=== PATIENT | male | born 1980 | race Caucasian/White ===

== ENCOUNTER 2024-02-26 14:53 | Outpatient (CLI) | payer OTHER ==
--- NOTE | 2024-02-26 15:57 | Sleep Patient Instructions ---
Sleep Center Visit Summary - Patient Visit Information Reason for Visit: Initial consultation - Patient Instructions Additional Instructions: You will continue with CPAP therapy with pressure set at 11-12 cmH2O. A supply prescription will be updated with your DME supplier. I have added an order to update your PAP machine. Please call the office to schedule a compliance follow up once you get your new device. We encourage you to continue to try to lose weight. Please follow up with the sleep care office one month after obtaining new device. - Clinic Information Contact: [facility] [address] [place] [address] [email or web address] T: [phone]
[2024-02-26 16:00] VITALS: BP 136/89; O2SAT 98
--- NOTE | 2024-02-26 16:00 | SLEEP CARE CONSULTATION ---
Information from patient questionnaire entered by Carina Polanco. I have reviewed and concur with the information entered by Carina Polanco. This document represents the service I personally performed and the decisions made by me, Caro De Jesus ARNP. History of Present Illness Service Date and Time: 02/26/2024 1453 Reason for Visit: New patient, Previously diagnosed sleep apnea, sleep apnea on CPAP therapy Chief Complaint: reports: Other (Continuing care, switching clinics, on CPAP) Date of Onset: 2016 Usual bedtime: 8 PM Time it takes to fall asleep: 30 mins Snores at night: Yes Observed to quit breathing while asleep: Yes Sleeps alone due to snoring: No Number of times waking at night: Before CPAP, 2 - 3 times Reasons for waking at night: reports: Choking, Snoring, Gasping for air, Pain, Bathroom, Other (Noise) Toss, Turn, or Twitch while sleeping: Yes Recalls having dreams: Yes Usually gets out of bed at: 3 AM Feels refreshed in the morning: Yes Morning headache: No Sleepy or fatigued during the day: No Ever fallen asleep while driving: No Takes day naps: No Dreams during day naps: Yes Prior sleep studies: Yes Year and Where: 2016 [facility] Type of Sleep Study: Polysomnography Additional HPI information: MORA BUTLER was previously diagnosed to have severe, AHI 44.4, obstructive sleep apnea-hypopnea syndrome as seen in sleep study through [facility] on 07/22/2016 and comes in today to establish care for CPAP therapy. - Parasomnia Symptoms Ever been unable to move upon waking from sleep: No Walks in sleep: No Talks in sleep: Yes Ever acted out dreams in sleep: No Ever felt weak in the knees when startled or emotional: No Bothered by creepy, crawly, restless sensations in legs: No Problems with memory or concentration: Yes CPAP Compliance Data - Data Reviewed with Patient Average duration of nightly device use: 6 h 54 mins Compliance rate %: 99 (361/365 days used) Current pressure setting (cmH2O): 11 - 12 Average residual AHI: 2.4 Central apnea: 0 Obstructive apnea: 1 Hypopnea: 1.3 Average large leak: 4.4 L/min Compliance data discussion: He has a Resmed Airsense 10 and the modem is not transmitting. He is getting his supplies from [employer]. He uses a hybrid full face mask. Subjective Missed days of use due to: reports: other (gets stuck in his truck, does not get home to use cpap) Patient concerns: denies: aerophagia, mask discomfort, air blowing in eyes, mask leak noise, condensation in mask/hose, nasal congestion, dry mouth, nose, throat, epistaxis Observed to snore while using device: No Current pressure setting perceived as: comfortable On therapy, patient: reports: sleeping better, awakening more refreshed, being more awake and alert during the day, more rested overall. 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 Patient is and lives in [place]. Have you smoked in the past 12 months: Yes (E-Cig) Alcohol use: No Caffeine use: Yes Caffeine amount and frequency: 1 cup a day Family History Family history of sleep disordered breathing: Yes Family Hx Sleep Apnea: Mother: Snoring, Sleep apnea - Treated Allergies and Home Medications Known drug allergies: Yes (Codeine) Drug allergies reviewed: Yes Home medication list reviewed: Yes (Flonase and Sudafed as needed) Allergy and home medication list: Allergies codeine Allergy (Verified 02/26/24 15:43) Rash Home Medications Flonase, prn Sudafed, prn Review of Systems Cardiovascular: denies: high blood pressure Neurological: denies: headaches Psychiatric: denies: anxiety, depression Ear/Nose/Throat: reports: sinus problems, wisdom teeth removed Immunologic: reports: sneezing (runny nose) Physical Exam Vital signs obtained and entered by: Caro Cazares NP Blood Pressure: 136/89 Cuff size: long (left arm) Heart Rate: 62 O2 Saturation: 98 Height: 6 ft 0.5 in Weight: 250 lb 12.8 oz Body Mass Index: 33.5 BMI Classification: Obese Neck circumference: 17.75 Heart: regular rate and rhythm Lungs: clear bilaterally Impression and Plan 1. Obstructive Sleep Apnea-Hypopnea Syndrome, severe, with good treatment compliance and good apnea control. On CPAP therapy, the patient has better sleep quality and is more rested overall. He last updated his machine in 2017. The patients CPAP is over 5 years old and of reasonable use. Thus, the CPAP will be updated. A DWO prescription will be made. Compliance guidelines for new device and follow up discussed. Patient's apnea severity and rationale for treatment to reduce apnea, improve sleep quality and reduce cardiovascular and cerebrovascular events was reviewed. 2. Obesity, unspecified. Currently patients BMI is 33.5. Obesity increases the risk of apnea, CPAP pressure requirements and overall health risks especially cardiovascular and diabetes. Thus patient is advised to lose weight. * Continue auto CPAP pressure at 11-12 cmH2O * Update machine * Update supply prescription. * Notify me if snoring with mask or feeling that the pressure is too much or too little * Attempt to lose weight * Call this office if any problems using CPAP * Return for follow up one month after obtaining new CPAP, or sooner if concerns arise Continue with device pressure at (cmH2O): 11-12 Counseling Topics: Spare mask, Weight loss health impact Prescriptions: Auto CPAP, Device supplies Visit Type: In Office Time Spent with Patient (minutes): 30 Provider Statement: I spent 100% of the Face to Face Visit with the patient with greater than 50% spent counseling the patient and coordination of care.
== END 2024-02-26 14:54 | disposition home or self-care (01) ==
LOC: SC 14:53
PROVIDERS: ATTEND Nurse Practitioner Family
DX: G47.33 Obstructive sleep apnea (adult) (pediatric) (principal); F17.290 Nicotine dependence, other tobacco product, uncomplicated; E66.9 Obesity, unspecified; Z68.33 Body mass index [BMI] 33.0-33.9, adult
CPT/HCPCS: 99203; 99212